=== PATIENT | female | born 1995 | race Caucasian/White ===

== ENCOUNTER 2021-02-23 08:46 | Day surgery (SDC) | payer BC ==
[~2021-02-23] VITALS: Ht 162.6 cm; Wt 154.0 kg
[2021-02-23] MEDS ORDERED: BIRTH CONTROL (09:03)
[2021-02-23] MEDS ORDERED: IV RINGERS,LACTATED 1000ML 1,000 ML IV SCH (09:30)
[2021-02-23] MEDS ORDERED: ONDANSETRON PF 4 MG/2 ML VIAL. ONE (10:20)
[2021-02-23] MEDS ORDERED: LIDOCAINE 2% PF 5 ML VIAL. ONE (10:20)
[2021-02-23] MEDS ORDERED: PROPOFOL 10 MG/ML (20ML) VIAL. IV ONE ×2 (10:20→12:09)
[2021-02-23] MEDS ORDERED: ROCURONIUM 50 MG/5 ML VIAL. ONE (10:21)
[2021-02-23] MEDS ORDERED: MIDAZOLAM HCL/PF 2 MG/2 ML VIAL. ONE (10:21)
[2021-02-23] MEDS ORDERED: fentaNYL PF VIAL 100 MCG/2 ML VIAL ONE ×2 (10:21→11:53)
[2021-02-23] MEDS ORDERED: DEXAMETHASONE SOD PHOS 4 MG/ML VIAL ONE (10:36)
[2021-02-23] MEDS ORDERED: LIDOCAINE 1%/EPI 1:100,000 20 ML VIAL. ONE (11:07)
[2021-02-23] MEDS ORDERED: GLYCOPYRROLATE 1 MG/5 ML VIAL. ONE (11:32)
[2021-02-23] MEDS ORDERED: NEOSTIGMINE 10 MG/10 ML VIAL. ONE (11:43)
[2021-02-23] MEDS ORDERED: KETOROLAC 30 MG/ML VIAL. ONE (11:45)
[2021-02-23] MEDS ORDERED: LIDOCAINE 1%/EPI 1:100,000 20 ML VIAL. INJ ONE (11:54)
[2021-02-23] MEDS ORDERED: SEVOFLURANE 61 TO 120 MINUTES. IH ONE (12:09)
[2021-02-23] MEDS ORDERED: oxyCODONE/APAP 10/325 1 TAB TABLET PO ONE (13:30)
[2021-02-23] MEDS ORDERED: OXYC-326 PO (13:30)
[2021-02-23] MEDS ORDERED: LIDO20SO10 MM (13:34)
[2021-02-23 13:51] VITALS: BP 104/71
--- NOTE | 2021-02-23 15:19 | OP ---
DATE OF SURGERY: 02/23/2021 PREOPERATIVE DIAGNOSIS: Chronic tonsillitis with hypertrophy. POSTOPERATIVE DIAGNOSIS: Chronic tonsillitis with hypertrophy. PROCEDURE PERFORMED: Tonsillectomy. INDICATIONS FOR THE PROCEDURE: Chronic tonsillar infections and airway compromise from tonsillar enlargement. ANESTHESIA: General anesthetic. The blood loss was estimated at 30 mL. DESCRIPTION OF PROCEDURE: The patient was brought to the operating room and placed on the operating table in supine position. She was given a general anesthetic. When her airway was secure, the table was rotated 90 degrees. A Mario mouth gag was then placed within the oral cavity and the tonsillar tissue was observed. The left tonsil was relatively large, but withdrawn within the tonsil fossa. The right tonsil was enlarged and pendulous within the oral cavity. The left tonsil was approached first. It was grasped and gently dissected medially. A shallow incision was created and gentle dissection carried out. A second Allis was then applied to the tonsil capsule allowing retraction and then dissection carried out with a Hector dissector and the use of suction cautery. The cautery was used to control bleeding as the dissection progressed. The tonsil was removed and bleeding controlled with electrocautery. Attention was then given to the right side. This tonsil was more enlarged and was more adhered to the capsule and the surrounding muscle structures. Gentle dissection was carried out using dissection and the use of cautery for dissection. As the tonsil was gradually removed, bleeding was controlled with complete removal of the tonsil. A sponge was placed within the tonsil passage. Light pressure was applied and bleeding was controlled completely. 1% lidocaine with epinephrine was injected into the tonsil fossa to aid in postoperative comfort. The oral cavity was irrigated and suctioned. No active bleeding was occurring and the procedure was completed. The patient was recovered from her anesthesia and taken to recovery room in stable condition. POLO/CHRISSY DR: Irene TID: [id number]
== END 2021-02-23 14:52 | disposition home or self-care (01) ==
LOC: SURG 08:46
PROVIDERS: ATTEND Otolaryngology
DX: J35.01 Chronic tonsillitis (principal); J45.909 Unspecified asthma, uncomplicated; E66.9 Obesity, unspecified; E03.9 Hypothyroidism, unspecified; F41.9 Anxiety disorder, unspecified; Z79.899 Other long term (current) drug therapy; Z98.890 Other specified postprocedural states
CPT/HCPCS: 42826; 81025; A4215; A4930; J1100; J1885; J2405; J2704; J2710; J3010; J3490; A4322; A4351; A4657; J2250